=== PATIENT | female | born 1970 | race Caucasian/White ===

== ENCOUNTER → 2023-07-21 15:17 | Outpatient (REF) | payer OTHER, SELFPAY | LOC: RAD 15:17 | PROVIDERS: ATTENDING PHYSICIAN Obstetrics & Gynecology; FAMILY PHYSICIAN Family Medicine | DX: N83.02 Follicular cyst of left ovary (principal) | CPT/HCPCS: 76830; 76856 ==

== ENCOUNTER → 2023-08-30 16:30 | Outpatient (REF) | payer OTHER, SELFPAY | LOC: WDC 16:30 | PROVIDERS: ATTENDING PHYSICIAN Obstetrics & Gynecology; FAMILY PHYSICIAN Family Medicine | DX: Z12.31 Encounter for screening mammogram for malignant neoplasm of breast (principal) | CPT/HCPCS: 77063; 77067 ==

== ENCOUNTER → 2023-10-03 11:06 | Outpatient (REF) | payer OTHER, SELFPAY | LOC: RAD 11:06 | PROVIDERS: ATTENDING PHYSICIAN Family Medicine; FAMILY PHYSICIAN Family Medicine | DX: R13.10 Dysphagia, unspecified (principal); R07.9 Chest pain, unspecified | CPT/HCPCS: 71046; 74221 ==

== ENCOUNTER → 2024-09-11 15:13 | Outpatient (REF) | payer OTHER, SELFPAY | LOC: WDC 15:13 | PROVIDERS: ATTENDING PHYSICIAN Obstetrics & Gynecology; FAMILY PHYSICIAN Family Medicine | DX: Z12.31 Encounter for screening mammogram for malignant neoplasm of breast (principal) | CPT/HCPCS: 77063; 77067 ==